=== PATIENT | male | born 1950 | race Caucasian/White ===

== ENCOUNTER → 2016-06-08 | Day surgery (SDC) | payer BC ==
[2016-06-06 13:09] VITALS: Ht 185.4 cm; Wt 88.2 kg
[~2016-06-08] VITALS: Ht 185.4 cm; Wt 88.2 kg
[~2016-06-08] MED LIST: ATEN-173 PO; HYDC25 PO; LEVE750T PO; LIDOCAINE HCL 2% 2 ML VIAL (20MG/ML) ONE; OXYC-164 PO; PROPOFOL IV EMULSION 10 MG/ML 20 ML VIAL IV ONE; SODIUM CHLORIDE 0.9% 500ML 500 ML IV ONE; SYMIN160 INH
--- NOTE | 2016-06-08 12:04 | Endo History and Physical ---
History & Physical Date of Service: Jun 08, 2016. Chief Complaint: Abnomal CT Referring Physician: Mala History of Present Illness sigmoid thickening on recent CT Past Surgical History Hx Cardiac Surgery: No Hx Internal Defibrillator: No Hx Pacemaker: No Hx Abdominal Surgery: Yes ([place]) Hx of Implantable Prosthesis: No Hx Post-Op Nausea and Vomiting: No Hx Cancer Surgery: Yes (SKIN EXCISION LEFT FOREARM) Hx Thoracic Surgery: No Hx Orthopedic: Yes (RT GENNY, LUMBAR FUSION, LEFT LOWER LEG SX ([place])) Hx Urinary Tract Surgery: No Family History None Social History Smoking Status: Former Smoker Hx Substance Use: No Hx Alcohol Use: Yes (RECENTLY STOPPED ON SATURDAY (12 BEERS WEEKLY BEFORE)) Allergies Coded Allergies: Losartan (Verified Allergy, Unknown, DIZZINESS, 06/06/16) Penicillins (Verified Allergy, Unknown, SWEATING, 06/06/16) Tramadol (Verified Allergy, Unknown, UNKNOWN, 06/06/16) Current Medications Reported Home Medications Medications Dose Route/Sig Max Daily Dose Days Date Category Oxycodone Hcl 10 Mg Tab 1 Tab PO TID 30 06/06/16 Reported Symbicort 160/4.5 Inhaler (Budesonide/Formoterol Fumarate) 120 Puffs/ Aero 2 Puffs INH BID 30 06/06/16 Reported Keppra (Levetiracetam) 750 Mg Tab 750 Mg PO BID 06/06/16 Reported Hctz * (Hydrochlorothiazide) 12.5 Mg Cap 12.5 Mg PO QAM 09/15/09 Reported Tenormin (Atenolol) 25 Mg Tab 25 Mg PO QAM 01/07/08 Reported Vital Signs Weight (Kilograms): 88.18 Height (Feet): 6 Height (Inches): 1 Date Time Temp Pulse Resp B/P Pulse Ox O2 Delivery O2 Flow Rate FiO2 06/08/16 11:29 36.5 55 18 132/68 98 Room Air Physical Exam General Appearance: WD/WN, no apparent distress Assessment and Plan colonoscopy today
--- NOTE | 2016-06-08 12:25 | Discharge Instructions ---
Endoscopy Patient Instructions Date / Procedure(s) Performed Jun 08, 2016. Colonoscopy Allergy Information Coded Allergies: Losartan (Verified Allergy, Unknown, DIZZINESS, 06/06/16) Penicillins (Verified Allergy, Unknown, SWEATING, 06/06/16) Tramadol (Verified Allergy, Unknown, UNKNOWN, 06/06/16) Discharge Date / Findings Jun 08, 2016. polyp, diverticulosis, internal hemorrhoids Medication Instructions Restart Stopped Medication(s): OK to resume all home medications as above Provider Instructions Activity Restrictions - No exercising or heavy lifting for 24 hours. - Do not drink alcohol the day of the procedure. - Do not drive a car or operate machinery until the day after the procedure. - Do not make any important decisions or sign important papers in 24 hours after the procedure. Following Day: - Return to full activity which may include returning to work/school. Diet Start your diet with liquids and light foods (jello, soup, juice, toast). Then eat your usual diet if not nauseated. Treatment For Common After Affects For mild abdominal pain, bloating, or excessive gas: - Rest - Eat lightly - Lie on right side Follow-Up Information Follow-up with Mala as scheduled Anesthesia Information What You Should Know You have had a procedure that required some medicine to reduce anxiety and discomfort. This treatment is called moderate sedation. After receiving the treatment, you may be sleepy, but you will be able to breathe on your own. The effects of the treatment may last for several hours. Follow these instructions along with Activity/Diet recommendations noted above: * Do NOT do anything where dizziness or clumsiness would be dangerous. * Rest quietly at home today, then you can be up and about tomorrow. * Have a responsible person stay with you the rest of today. * You may have had an I.V. today. If so, you may take the dressing off later today. Recommendations Call your doctor if: * Trouble breathing * Continuous vomiting for more than 24 hours * Temperature above 101 degrees * Severe abdominal pain or bloating * Pain not relieved by pain medicine ordered * There is increased drainage or redness from any incision * A large amount of rectal bleeding greater than 2-3 tablespoons. (If you had a polyp/s removed or have hemorrhoids, a small amount of blood - from the rectum is to be expected.) * You have any unanswered questions or concerns. IN THE EVENT OF A SERIOUS EMERGENCY, GO TO THE NEAREST EMERGENCY ROOM Your discharge instructions were prepared by provider Jessica Sanchez. Patient Instructions Signature Page Melquiades Lima Patient (or Guardian) Signature/Date: I have read and understand the instructions given to me by my caregivers. Caregiver/RN/Doctor Signature/Date: The above-named patient and/or guardian has received patient instructions on this date. + Original Patient Signature Page (only) stays with chart. Please make copy for patient.
--- NOTE | 2016-06-08 12:28 | GI REPORT ---
Procedure Date: 06/08/2016 12:03 PM Procedure: Colonoscopy Indications: Screening for colorectal malignant neoplasm, Incidental - Abnormal CT of the GI tract (sigmoid thickening), occasional rectal bleeding Medicines: See the Anesthesia note for documentation of the administered medications Complications: No immediate complications. Estimated blood loss: Minimal. Estimated Blood Loss: Estimated blood loss was minimal. Procedure: Pre-Anesthesia Assessment: - Prior to the procedure, a History and Physical was performed, and patient medications, allergies and sensitivities were reviewed. The patient's tolerance of previous anesthesia was reviewed. - The risks and benefits of the procedure and the sedation options and risks were discussed with the patient. All questions were answered and informed consent was obtained. - Patient identification and proposed procedure were verified prior to the procedure by the physician and the nurse. The procedure was verified in the pre-procedure area in the procedure room. - Mental Status Examination: alert and oriented. Airway Examination: normal oropharyngeal airway and neck mobility. Respiratory Examination: clear to auscultation. CV Examination: normal. Abdominal Examination: bowel sounds present, abdomen soft and non-tender, no masses or organomegaly noted. - ASA Grade Assessment: III - A patient with severe systemic disease. After I obtained informed consent, the scope was passed under direct vision. Throughout the procedure, the patient's blood pressure, pulse, and oxygen saturations were monitored continuously. The On-site loaner was introduced through the anus and advanced to the terminal ileum. The colonoscopy was performed without difficulty. The patient tolerated the procedure well. The quality of the bowel preparation was good. Findings: The perianal and digital rectal examinations were normal. Pertinent negatives include normal sphincter tone and no palpable rectal lesions. The terminal ileum appeared normal. A 6 mm polyp was found in the cecum. The polyp was sessile. The polyp was removed with a cold snare. Resection and retrieval were complete. Verification of patient identification for the specimen was done by the physician and nurse using the patient's name and date. Estimated blood loss was minimal. Multiple small and large-mouthed diverticula were found in the sigmoid colon. Internal hemorrhoids were found during retroflexion. The hemorrhoids were medium-sized and Grade I (internal hemorrhoids that do not prolapse). Impression: - The examined portion of the ileum was normal. - One 6 mm polyp in the cecum, removed with a cold snare. Resected and retrieved. - Diverticulosis in the sigmoid colon. - Internal hemorrhoids. Recommendation: - Await pathology results. - Repeat colonoscopy for surveillance based on pathology results. - Return to referring physician as previously scheduled. - Discharge patient to home. Jessica Sanchez D.O. Jessica Sanchez, 06/08/2016 12:27:27 PM This report has been signed electronically. Note Initiated On: 06/08/2016 12:03 PM I attest to the content of the Intraoperative Record and orders documented therein, exceptions below
--- NOTE | 2016-06-08 12:58 | Anesthesiology Progress Note ---
Anesthesia Post Op Note Date & Time Jun 08, 2016 at 12:58 Vital Signs Pain Intensity: 0 Vital Signs Past 12 Hours Date Time Temp Pulse Resp B/P Pulse Ox O2 Delivery O2 Flow Rate FiO2 06/08/16 12:50 49 18 119/55 98 Room Air 06/08/16 12:35 50 18 112/54 98 Room Air 06/08/16 11:29 36.5 55 18 132/68 98 Room Air Notes Mental Status: alert / awake / arousable, participated in evaluation Pt Amnestic to Procedure: Yes Nausea / Vomiting: adequately controlled Pain: adequately controlled Airway Patency, RR, SpO2: stable & adequate BP & HR: stable & adequate Hydration State: stable & adequate Anesthetic Complications: no major complications apparent Pt doing well.
[2016-06-08 13:06] VITALS: BP 131/67; PULSE 50; O2SAT 99
== END | disposition home or self-care (01) ==
LOC: C.GI 11:10
PROVIDERS: ATTEND Internal Medicine
DX: Z12.11 Encounter for screening for malignant neoplasm of colon (principal); D12.0 Benign neoplasm of cecum; K57.50 Diverticulosis of both small and large intestine without perforation or abscess without bleeding; K64.8 Other hemorrhoids; Z98.1 Arthrodesis status; Z98.890 Other specified postprocedural states; Z87.891 Personal history of nicotine dependence; Z88.0 Allergy status to penicillin; Z88.8 Allergy status to other drugs, medicaments and biological substances

== ENCOUNTER 2020-06-01 12:12 | Observation (INO) ==
[2020-06-01] MEDS ORDERED: ASPIRIN CHEW 324 MG PO STA (13:44)
[2020-06-01] MEDS: NITROGLYCERIN SL 0.4 MG/TAB TAB SL PRN ×2 (13:53→14:02)
[2020-06-01 13:59] LABS: Basophils # (auto) 0.01 K/uL (0-0.2); Basophils % (auto) 0.1 %; Eosinophils # (auto) 0.32 K/uL (0-0.5); Eosinophils % (auto) 3.4 %; Hematocrit (blood only) 42.2 % (42-52); Hemoglobin 13.9 g/dL (14.0-18.0); Immature Granulocytes # (auto) 0.02 K/uL (0.00-0.02); Immature Granulocytes % (auto) 0.2 %; Lymphocytes # (auto) 1.85 K/uL (1.2-3.4); Lymphocytes % (auto) 19.8 %; Mean Corpuscular Hgb Conc 32.9 g/dL (32-36); Mean Corpuscular Volume 88.1 fL (80-100); Mean Platelet Volume 9.4 fL (7.4-10.4); Monocytes # (auto) 0.85 K/uL (0.11-0.59); Monocytes % (auto) 9.1 %; Neutrophils # (auto) 6.28 K/uL (1.4-6.5); Neutrophils % (auto) 67.4 %; Platelet Count 260 K/uL (130-400); RDW Coefficient of Variation 13.8 % (11.5-14.5); RDW Standard Deviation 44.9 fL (36.4-46.3); Red Blood Count 4.79 M/uL (4.7-6.1); White Blood Count 9.33 K/uL (4.8-10.8)
[2020-06-01 14:11] LABS: Alanine Aminotransferase 20 U/L (12-78); Albumin Level 3.7 gm/dl (3.4-5.0); Aspartate Aminotransferase 13 U/L (15-37); BUN Creatinine Ratio 12.2 (10-20); Blood Urea Nitrogen 11 mg/dl (7-18); Calcium 9.3 mg/dl (8.5-10.1); Carbon Dioxide 29 mmol/L (21-32); Chloride 107 mmol/L (98-107); Creatinine Clr Calc Pharmacy 90.5 ml/min; Est GFR (African American) 100.9; Glucose 96 mg/dl (70-99); Lipase 110 U/L (73-393); Potassium 4.1 mmol/L (3.5-5.1); Sodium 140 mmol/L (136-145)
--- NOTE | 2020-06-01 14:11 | XRay Report ---
XR chest 1V portable CLINICAL HISTORY: Atypical chest pain COMPARISON STUDY: Headache and 18 FINDINGS: The heart is borderline enlarged. There is a left subclavian pacer/defibrillator. There is no failure. There is no focal pulmonary consolidation. There are no pleural effusions.[ IMPRESSION: No active disease in the chest. ACT 112: Negative or not required by law. Electronically signed by: Ambrose Sam M.D. 06/01/2020 2:10 PM
[2020-06-01] MEDS ORDERED: fentaNYL citrate 100 MCG/2 ML VIAL IV STA (14:13)
[2020-06-01 14:16] LABS: Albumin Globulin Ratio 0.8 (0.9-2); Alkaline Phosphatase 76 U/L (45-117); Bilirubin,Total 0.7 mg/dl (0.2-1); Globulin 4.4 gm/dl (2.5-4.0); Total Protein 8.1 gm/dl (6.4-8.2); Troponin I < 0.015 ng/ml (0-0.045)
[2020-06-01 14:58] LABS: Appearance Urine Clear (Clear); Bilirubin Urine Negative (Negative); Blood Urine Negative (Negative); Color Urine Yellow; Glucose Urine UA Negative (Negative); Ketones Urine Trace (Negative); Leukocyte Esterase Urine Negative (Negative); Nitrite Urine Negative (Negative); Protein Urine Negative (Negative); Specific Gravity Urine 1.015 (1.000-1.030); Urobilinogen Urine Negative (Negative)
[2020-06-01 15:31] LABS: Amphetamines+Metham, Urine Neg (Neg); Barbiturates, Urine Neg (Neg); Benzodiazepine, Urine Neg (Neg); Cocaine, Urine Neg (Neg); MDMA (Ecstacy), Urine Neg (Neg); Methadone, Urine Neg (Neg); Opiate, Urine Neg (Neg); Phencyclidine, Urine Neg (Neg)
--- NOTE | 2020-06-01 16:11 | Electrocardiogram Report ---
Test Reason : Blood Pressure : / mmHG Vent. Rate : 079 BPM Atrial Rate : 079 BPM P-R Int : 176 ms QRS Dur : 170 ms QT Int : 430 ms P-R-T Axes : 052 -74 056 degrees QTc Int : 493 ms AV dual-paced rhythm Abnormal ECG When compared with ECG of 25-DEC-2017 13:46, Vent. rate has increased BY 18 BPM Confirmed by Galdino Romero ([id number]) on 06/01/2020 4:11:15 PM Referred By: Roel Law Confirmed By:Erich Romero
[2020-06-01] MEDS ORDERED: ONDANSETRON INJ 2 MG/ML 2 ML VIAL IV STA (16:59)
[2020-06-01] MEDS ORDERED: MoRPHine SULFATE 4 MG/ML 1 ML CARP\\VIAL IV STA (16:59)
[2020-06-01] MEDS ORDERED: FAMOTIDINE 20MG/5ML IV PUSH IV STA (17:01)
--- NOTE | 2020-06-01 17:14 | Cardiology Consultation ---
Date of Consultation June 01, 2020 Assessment & Plan (1) Chest pain: (2) SOB (shortness of breath): (3) Chronic pain: (4) Chronic systolic congestive heart failure, NYHA class 3: (5) LBBB (left bundle branch block): (6) NICM (nonischemic cardiomyopathy): Initial ischemic work-up in the emergency department was unremarkable without EKG changes and troponin negative x2. I am not quite sure what to make of his presenting symptoms at this point. I was able to reproduce some chest discomfort with palpation but he states that this was different than his presenting chest pain. At this point the differential diagnosis would include: Ischemia, pericarditis, pulmonary embolism, pleurisy and musculoskeletal. The ER physician has ordered a CTA and I agree with this. We will admit to telemetry and trend troponins overnight. We will obtain a resting 2D echocardiogram and Lexiscan nuclear stress test in the a.m. to complete cardiac work-up of his discomfort. Would continue his outpatient medical regimen including his current doses of aspirin, Entresto, spironolactone, carvedilol and atorvastatin. No indication for anticoagulation at this time. History of Present Illness Reason for Consultation: chest pain Requesting Physician: Dr. Renee Attending Physician: Papa History of Present Illness Mr. Lima is a very pleasant 69-year-old gentleman with with myself as an outpatient for his history of nonischemic cardiomyopathy. Mr. Lima is a very pleasant 69-year-old gentleman he presented to the emergency department this morning at the advice of our office after he called in complaining of chest discomfort and shortness of breath. He states he was in his normal state of health up until yesterday afternoon when he started noticing some difficulty breathing. He states he felt more short of breath than normal and he developed some chest discomfort. He described it as in the center of his chest a sharp stabbing/dull achy sensation that was worse with with deep inhalation. He attempted to go to bed that night but was unable to lie flat and set up with his oxygen on all night. His chest discomfort then progressed to radiating up to his neck and to his right shoulder. He called our clinic for advice and he was directed to the emergency department. He notes no improvement with the chest discomfort in the emergency department. He notes that this is similar to his most recent presentation to [facility] for chest discomfort. Past medical history: 1.Nonischemic cardiomyopathy, EF 30%, status post biventricular ICD placement. 2.Chronic left bundle branch block. 3.History of tobacco abuse. 4.Lung nodules. 5.History of Agent [place] exposure during [place] war. 6.Chronic pain. 7.Hypertension. 8.seizures. 9. History of musculoskeletal chest pain Allergies Allergy/AdvReac Type Severity Reaction Status Date / Time losartan Allergy Unknown DIZZINESS Verified 06/01/20 12:53 Penicillins Allergy Unknown SWEATING Verified 06/01/20 12:53 tramadol Allergy Unknown UNKNOWN Verified 06/01/20 12:53 Home Medications Medication Instructions Recorded Confirmed Type acetaminophen [Tylenol] 650 mg PO Q6H PRN 12/20/17 06/01/20 History albuterol sulfate [ProAir HFA] 2 puff INHALATION Q4H PRN 12/20/17 06/01/20 History budesonide-formoterol 2 puff INHALATION BID 12/20/17 06/01/20 History carvedilol 6.25 mg PO BID 12/20/17 06/01/20 History lisinopril 20 mg PO QAM 12/20/17 06/01/20 History oxycodone 10 mg PO TID 12/20/17 06/01/20 History spironolactone 12.5 mg PO DAILY 12/25/17 06/01/20 History aspirin [Aspir-81] 81 mg PO DAILY 06/01/20 06/01/20 History sacubitril-valsartan [Entresto] 1 tab PO BID 06/01/20 06/01/20 History Patient History Medical History Cancer LEFT FOREARM-NOT MELANOMA Chronic obstructive pulmonary disease Admitted to [facility] 09/01/17 for hypoxemia/ARDS requiring intubation. Congestive heart failure Depression Flash pulmonary edema 08/2017 to ED with SOB, found to have flash pulm edema--transferred from [facility] to [facility], intubated. During this hospitalization found to have cardiomyopathy. Fusion of spine LUMBAR GERD (gastroesophageal reflux disease) HX Hypertension LBBB (left bundle branch block) Lung nodules Nonischemic cardiomyopathy EF 25-29% On home oxygen therapy OXYGEN 2 L/MIN NC HS ONLY Osteoarthritis Seizure 05/2016-DX'D BRAIN TUMOR (EPIDERMOID CYST) -[facility]-NO SEIZURES AFTER SURG DONE 06/2016. STARTED WEANING OFF KEPPRA 09/19/17 Surgical History History of cardiac cath 08/2017 NO STENTS NEEDED History of cholecystectomy History of open reduction and internal fixation (ORIF) procedure LLE-RODDING History of total hip arthroplasty RIGHT Hx of brain surgery 05/2016 EPIDERMAL CYST Hx of removal of cyst R THIGH /BACK-BENIGN Family History Sister Family history of diabetes mellitus Father Family history of diabetes mellitus Brother Family history of diabetes mellitus Social History Smoking Status: Current every day smoker Cigarettes Per Day: SMOKES 1 PPD X 52 YRS; Second Hand Exposure: No; Hx Alcohol Use: Yes Alcohol type: beer Hx Substance Use: No Preferred Language: Citizen Of [place] Communication Ability: Effective Automobile Service Advisor Required: No Beliefs That Will Affect Care: None Current Living Situation: Spouse Feels Safe at Home: Yes Assistive Devices: None Review of Systems Review of Systems: All systems reviewed & are unremarkable except as noted in HPI & below Physical Exam Physical Exam: General: Awake, alert and oriented x 3. No acute distress. HEENT: Normocephalic, atraumatic. Pupils equal, round and reactive to light and accommodation. Extraocular muscles are intact. Anicteric sclera. Moist mucous membranes. Neck: No JVD. No bruit. Cardiovascular: Regular. Positive S-4. Normal S-1 and S-2. No S-3. No murmurs or rubs. Pulmonary: Clear to auscultation B/L. No rales, rhonchi or wheezing Abdomen: Bowel sounds x 4, soft. No rebound, guarding or tenderness. No organomegaly. Extremities: No clubbing, cyanosis or edema. +2 pedal pulses bilaterally. Skin: Warm and dry. Results & Data ([facility]) Vital Signs (Past 12 Hours) Vital Signs Temp Pulse Pulse Resp BP BP Pulse Ox 06/01/20 16:00 62 19 134/63 92 06/01/20 15:50 61 18 149/71 H 92 06/01/20 15:40 66 17 120/63 94 03/24/21 15:31 60 16 95 24/21 15:30 60 18 139/73 95 24/21 15:20 62 16 126/66 95 24/21 15:10 60 17 142/65 H 93 06/01/20 15:01 61 16 96 06/01/ 15:00 61 15 124/67 95 24/21 14:51 60 14 95 06/01/ 14:50 61 19 134/68 96 06/01/ 14:40 61 15 124/69 96 06/01/20 14:31 65 22 96 06/01/20 14:30 62 17 137/71 97 06/01/ 14:22 62 18 128/74 96 06/01/20 14:10 69 18 103/61 93 06/01/20 14:02 61 18 131/66 96 06/01/20 14:00 62 13 131/66 95 06/01/ 13:52 64 18 147/72 H 96 06/01/20 13:45 96 06/01/20 13:30 60 15 95 06/01/20 13:00 60 15 97 06/01/21 12:43 62 17 147/72 H 93 24/21 12:40 69 20 /24/21 12:16 36.7 C 18 130/77 93
[2020-06-01] MEDS ORDERED: OPTIRAY 320 125ml IV ONE (17:42)
--- NOTE | 2020-06-01 17:52 | History & Physical Report ---
Date of Service June 01, 2020 Assessment & Plan (1) Chest pain: (2) NICM (nonischemic cardiomyopathy): Pt is 69 y/o M with PMH non-ischemic cardiomyopathy with EF 30% s/p ICD thought secondary to agent orange exposure, chronic LBBB, HTN, COPD, chronic hypoxic respiratory failure on 2L oxygen HS, seizure thought secondary to brain tumor s/p surgery, chronic pain presented to ER with c/o CP x 1 day In ER vitals stable. Negative troponin x 2. Paced rhythm on EKG. Received aspirin 324mg, Nitro SL x 2, morphine, pepcid, zofran, and fentanyl and felt relief after fentanyl CTA chest:No evidence of thoracic aortic aneurysm or dissection. No evidence of acute pulmonary embolism. Small pericardial effusion CHEST PAIN R/O ACS. Risk factors: HTN, hyperlipidemia, tobacco use. DDX: musculoskeletal etiology, pericarditis. Monitor Vitals Repeat EKG in am Will trend troponin Echo lipid panel in am, continue statin Continue aspirin, carvedilol, Entresto, spironolactone Morphine prn pain NPO midnight for possible stress test tomorrow Cardiology consult COPD CHRONIC HYPOXIC RESPIRATORY FAILURE On oxygen 2L NC HS No signs of acute exacerbation Continue home inhalers HTN BP stable Continue carvedilol, Entresto CHRONIC BACK PAIN Continue home oxycodone CHRONIC LBBB TOBACCO USE smoking cessation encouraged denies nicotine patch at this time DVT Prophylaxis -Heparin SQ Full Code as per discussion with pt Follows with Dr Medeiros for routine care Pt was seen and care coordinated with Dr Herring. See addendum History of Present Illness Chief Complaint: CP Primary Care Provider: Andry Medeiros MD Pt is 69 y/o M with PMH non-ischemic cardiomyopathy with EF 30% s/p ICD thought secondary to agent orange exposure, chronic LBBB, HTN, COPD, chronic hypoxic respiratory failure on 2L oxygen HS, seizure thought secondary to brain tumor s/p surgery, chronic pain presented to ER with c/o CP x 1 day. Reports yesterday afternoon started with SOB, anterior chest pain. Reports worsening CP during the night rated 8/10 on pain scale and reports radiation to neck and right shoulder. Pt states had to sit upright last night which seemed to make CP and SOB better. In ER notices lying on left side makes him feel better. He states past several days lying on right side caused some right shoulder and neck pain. Denies injury/trauma. Denies any activity or exertion. States has been sitting at home. Has chronic mild intermittent cough productive of clear sputum. Denies any increased cough or increased sputum production. Denies wheezing. Reports in 03/2020 had CP and was seen at [facility] and had acute [place] ruled out. Denies fever/chills, diaphoresis, N/V/D/C, SIMON, syncope, vision changes, neck pain, palpitations, hemoptysis, sore throat, choking, otalgia, rhinorrhea, abdominal pain, paresthesias, weakness, extremity weakness, extremity edema, rashes, urinary symptoms. Allergies Allergy/AdvReac Type Severity Reaction Status Date / Time losartan Allergy Unknown DIZZINESS Verified 06/01/20 12:53 Penicillins Allergy Unknown SWEATING Verified 06/01/20 12:53 tramadol Allergy Unknown UNKNOWN Verified 06/01/20 12:53 Home Medications Medication Instructions Recorded Confirmed Type acetaminophen [Tylenol] 650 mg PO Q6H PRN 12/20/17 06/01/20 History albuterol sulfate [ProAir HFA] 2 puff INHALATION Q4H PRN 12/20/17 06/01/20 History budesonide-formoterol 2 puff INHALATION BID 12/20/17 06/01/20 History oxycodone 10 mg PO TID PRN 12/20/17 06/01/20 History spironolactone 12.5 mg PO DAILY 12/25/17 06/01/20 History aspirin [Aspir-81] 81 mg PO DAILY 06/01/20 06/01/20 History atorvastatin 80 mg PO DAILY 06/01/20 06/01/20 History carvedilol 25 mg PO BID 06/01/20 06/01/20 History montelukast 10 mg PO HS 06/01/20 06/01/20 History sacubitril-valsartan [Entresto] 1 tab PO BID 06/01/20 06/01/20 History Past Med/Surg History Medical History (Updated 06/01/20 @ 17:58 by Kylee Sanchez PA-C) 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 Congestive heart failure Depression Flash pulmonary edema 08/2017 to ED with SOB, found to have flash pulm edema--transferred from [facility] [place] [facility]. During this hospitalization found to have cardiomyopathy. Fusion of spine LUMBAR GERD (gastroesophageal reflux disease) HX Hypertension LBBB (left bundle branch block) Lung nodules Nonischemic cardiomyopathy EF 25-29% On home oxygen therapy OXYGEN 2 L/MIN NC HS ONLY Osteoarthritis Seizure 05/2016-DX'D BRAIN TUMOR (EPIDERMOID CYST) [place] SEIZURES AFTER SURG DONE 06/2016. STARTED WEANING OFF KEPPRA 09/19/17 Surgical History History of cardiac cath 08/2017 NO STENTS NEEDED History of cholecystectomy History of open reduction and internal fixation (ORIF) procedure LLE-RODDING History of total hip arthroplasty RIGHT Hx of brain surgery 05/2016 EPIDERMAL CYST Hx of removal of cyst R THIGH /BACK-BENIGN Family History Sister Family history of diabetes mellitus Father Family history of diabetes mellitus Brother Family history of diabetes mellitus Social History Smoking Status: Current every day smoker Cigarettes Per Day: SMOKES 1 PPD X 52 YRS; Second Hand Exposure: No; Hx Alcohol Use: Yes Alcohol type: beer Hx Substance Use: No Preferred Language: Tongan Communication Ability: Effective Decorator Inspector Required: No Beliefs That Will Affect Care: None Current Living Situation: Spouse Feels Safe at Home: Yes Assistive Devices: None Review of Systems Review of Systems: All systems reviewed & are unremarkable except as noted in HPI & below Physical Exam Physical Exam: General: no distress, WDWN Head: normocephalic, atraumatic Eyes: PERRL, EOM's intact, conjunctiva non-injected, anicteric ENT: normal inspection external ears, nose, mucous membranes moist Neck: supple, trachea midline Lungs: clear, no respiratory distress, no wheezing/rhonchi/rales CV: RRR, no murmur, no pretibial edema, currently chest wall non-tender to palpation (pt medicated prior to my eval) Abd: normal BS, soft, non-tender Ext: no cyanosis, no calf tenderness; right shoulder non-tender to palpation and with ROM Neuro: A&O x 3, no focal deficits noted, normal affect Skin: warm, dry Results & Data Results & Data ([facility]) Vital Signs (Past 12 Hours) Vital Signs Temp Pulse Pulse Resp BP BP Pulse Ox 06/01/20 17:31 63 14 96 06/01/20 17:30 67 15 104/61 94 06/01/20 17:20 66 17 132/65 95 06/01/20 17:11 71 22 95 06/01/20 17:10 67 15 150/80 H 94 06/01/20 17:01 64 17 164/79 H 96 06/01/20 17:00 70 13 96 06/01/20 16:50 66 15 129/74 94 06/01/20 16:40 63 16 144/69 H 95 06/01/20 16:31 63 19 92 06/01/20 16:30 63 14 126/66 92 06/01/20 16:20 62 21 150/73 H 95 06/01/20 16:10 62 19 131/72 93 06/01/20 16:01 61 18 92 06/01/20 16:00 62 19 134/63 92 06/01/20 15:50 61 18 149/71 H 92 06/01/20 15:40 66 17 120/63 94 06/01/20 15:31 60 16 95 06/01/20 15:30 60 18 139/73 95 06/01/20 15:20 62 16 126/66 95 06/01/20 15:10 60 17 142/65 H 93 06/01/20 15:01 61 16 96 06/01/20 15:00 61 15 124/67 95 06/01/20 14:51 60 14 95 06/01/20 14:50 61 19 134/68 96 06/01/20 14:40 61 15 124/69 96 06/01/20 14:31 65 22 96 06/01/20 14:30 62 17 137/71 97 06/01/20 14:22 62 18 128/74 96 06/01/20 14:10 69 18 103/61 93 06/01/20 14:02 61 18 131/66 96 06/01/20 14:00 62 13 131/66 95 06/01/20 13:52 64 18 147/72 H 96 06/01/20 13:45 96 06/01/20 13:30 60 15 95 06/01/20 13:00 60 15 97 06/01/20 12:43 62 17 147/72 H 93 06/01/20 12:40 69 20 06/01/20 12:16 36.7 C 18 130/77 93 Laboratory Results Short CBC 06/01/20 Range/Units 12:44 WBC 9.33 (4.8-10.8) K/uL Hgb 13.9 L (14.0-18.0) g/dL Hct 42.2 (42-52) % Plt Count 260 (130-400) K/uL BMP 06/01/20 12:44 Sodium 140 Potassium 4.1 Chloride 107 Carbon Dioxide 29 BUN 11 Creatinine 0.88 Glucose 96 Calcium 9.3 Cardiac Enzymes 06/01/20 06/01/20 Range/Units 12:44 15:27 Troponin I < 0.015 < 0.015 (0-0.045) ng/ml Liver Function 06/01/20 Range/Units 12:44 Total Bilirubin 0.7 (0.2-1) mg/dl AST 13 L (15-37) U/L ALT 20 (12-78) U/L Alkaline Phosphatase 76 (45-117) U/L Albumin 3.7 (3.4-5.0) gm/dl Urine 06/01/20 Range/Units 14:15 Urine Color Yellow Urine Appearance Clear (Clear) Urine pH 7.0 (4.5-7.5) Ur Specific [place] 1.015 (1.000-1.030) Urine Protein Negative (Negative) Urine Glucose (UA) Negative (Negative) Diagnostic Findings CXR: IMPRESSION: No active disease in the chest. CTA CHEST: IMPRESSION: 1. No evidence of thoracic aortic aneurysm or dissection 2. Moderately extensive atheromatous changes within the descending thoracic aorta with multiple ulcerated plaques 3. No evidence of acute pulmonary embolism 4. Small pericardial effusion 5. Scattered pulmonary micronodules, statistically postinflammatory 6. 4 mm left lower lobe perifissural nodule and 3 mm subpleural left lower lobe pulmonary nodule. No follow-up is recommended in an average risk patient ECG Findings: + paced rhythm Code Status & VTE Plan VTE Prophylaxis Plan VTE Prophylaxis will be ordered: Yes Supervising Physician Co-Signing Physician Notes Patient is 69-year-old male with past medical history of nonischemic cardiomyopathy who is accompanied by by his today presented to the ED after sudden episode of chest pain along with shortness of breath. Patient reports his chest pain is substernal in nature radiates bilateral to the chest and to the right arm. Also reports that he has been feeling short of breath for the past few days. Denies any cough, fever or sore throat. Has any dizziness or any palpitations. Reports his pain gets worse with deep breathing. Denies any recent travel. Does report orthopnea and paroxysmal nocturnal dyspnea. His baseline weight is around 178 and today's roughly 179. Cardiac enzymes have been negative. Cardiology has been consulted. Will obtain transthoracic echo and trend cardiac enzymes. As needed morphine for pain control. I performed a history and physical examination of the patient on 06/01/20, including specifically H&P. I have discussed the patient's management with the advanced practitioner. Please refer to the Kylee Sanchez note for the documented findings and plan of care.
--- NOTE | 2020-06-01 18:04 | Emergency Department Note ---
Impression & Plan SOB (shortness of breath), Substernal chest pain ED Provider Note NAME: JOSE JUAN BRAY AGE: 69 SEX: M ARRIVES VIA: Walk-In INFORMANT: Patient, ED PROVIDER(S): Tara Renee MD CHIEF COMPLAINT: Chest pain, shortness of breath PLAN: Disposition: Admission Condition: Good Referral: Hospitalist MEDICAL DECISION MAKING: This patient was evaluated and appeared to be in no significant distress. IV access was obtained and laboratory work was drawn. Patient was placed on the group activities aide and noted to be in a paced rhythm. EKG reveals no acute ischemic changes however patient is paced. Patient was given 3 baby aspirin as he had already taken 1 previous to the visit. He was given sublingual nitroglycerin without any change in the discomfort. Patient was then ordered IV fentanyl which he apparently never received and then was given IV morphine and Zofran. Patient's troponin is negative x2. Patient's pharmacy technician instructor, Dr. Law arrived in the emergency department and recommended hospitalization for further evaluation given the patient's multiple medical problems. A CT scan of the chest was performed as the patient began to complain of some back discomfort. There is no evidence of dissection however there is significant atherosclerotic change. The [facility] hospitalist was consulted for further management. Patient and are aware of the plan and agree Triage Nursing notes reviewed. Prior medical records reviewed Vital Signs: reviewed and remarkable for no significant abnormalities Differential diagnosis: Cardiac ischemia, aortic dissection, pulmonary embolism, pneumothorax, pneum onia, pericarditis, myocarditis, esophageal rupture, GERD, cholecystitis, pancreatitis, musculoskeletal, as well as other pathologies. ER treatment provided: P.o. aspirin Sublingual nitroglycerin IV morphine IV Zofran Diagnostics interpreted by me: ECG: Atrially sensed and ventricularly paced with frequent AV dual paced complexes. Prolonged QTC at 473. No acute ST segment change. Cardiac Monitoring: An order for cardiac monitoring was placed and the patient is noted to be in a paced rhythm at 62 bpm Laboratory studies: See below Imaging studies: XR chest 1V portable CLINICAL HISTORY: Atypical chest pain COMPARISON STUDY: Headache and 18 FINDINGS: The heart is borderline enlarged. There is a left subclavian pacer/defibrillator. There is no failure. There is no focal pulmonary consolidation. There are no pleural effusions.[ IMPRESSION: No active disease in the chest. ACT 112: Negative or not required by law. Electronically signed by: Ambrose Sam M.D. 06/01/2020 2:10 PM Dictated: 06/01/201408Transcribed: 06/01/201408 CT ANGIOGRAPHY OF THE CHEST WITHOUT AND WITH IV CONTRAST CLINICAL HISTORY: Chest pain radiating to the back. Possible acute aortic dissection. COMPARISON STUDY: Chest x-ray dated 06/01/2020 TECHNIQUE: Unenhanced images were obtained through the thorax. Following the IV administration of 119 mL of Optiray-[id number], CT angiography of the thorax was performed from the thoracic inlet to the lung bases. Images were acquired Images are reviewed in the axial, sagittal, and coronal planes. IV contrast was administered without complication. A dose lowering technique was utilized adhering to the principles of ALARA. CT DOSE: 609.84 mGy.cm FINDINGS: Thyroid: There is a multinodular thyroid gland with nodules measuring up to 11 mm in diameter Thoracic aorta: Noncontrast images reveal no evidence of acute thoracic aortic hematoma. There is no evidence of thoracic aortic aneurysm. There is no evidence of thoracic aortic dissection. There are moderately advanced atheromatous changes within the descending thoracic aorta with scattered ulcerated plaques. Pulmonary vasculature: The pulmonary trunk is normal in caliber. There are no central filling defects identified to suggest pulmonary embolus. Note that this examination was not protocoled for the evaluation of pulmonary emboli. HEART: There is a small pericardial effusion. A pacer/defibrillator is present. Lungs and pleural spaces: There is no pneumothorax. There is biapical scarring. There is pulmonary emphysema. There is no lobar consolidation. There are nonspecific scattered pulmonary micronodules, statistically postinflammatory. There is a 4 mm left lower lobe perifissural nodule, and 3 mm subpleural left lower lobe pulmonary nodule. Mediastinum: There is no evidence of pathologic mediastinal lymphadenopathy. Irish: Hilar lymph nodes are the upper limits of normal in size. Axilla: There is no evidence of pathologic axillary lymphadenopathy. Upper abdomen: Partially visualized upper abdominal viscera is within normal limits. Skeletal structures: There are no lytic or blastic osseous lesions. IMPRESSION: 1. No evidence of thoracic aortic aneurysm or dissection 2. Moderately extensive atheromatous changes within the descending thoracic aorta with multiple ulcerated plaques 3. No evidence of acute pulmonary embolism 4. Small pericardial effusion 5. Scattered pulmonary micronodules, statistically postinflammatory 6. 4 mm left lower lobe perifissural nodule and 3 mm subpleural left lower lobe pulmonary nodule. No follow-up is recommended in an average risk patient ACT 112: Negative or not required by law. Electronically signed by: Ambrose Sam M.D. 06/01/2020 6:08 PM Dictated: 06/01/20 1800Transcribed: 06/01/20 1800 HPI: 69/M arrives for evaluation of chest pain and shortness of breath that has kept him up all night. Patient's states he sat up against a wall with his oxygen in place having difficulty catching her breath patient states he had substernal chest discomfort that radiated up towards the neck however he denies any radiation to the arms or the back. Patient does have a pacemaker and history of cardiomyopathy. He wears oxygen but only at night. He took his usual pain medications without any relief. He feels as though there may be fluid in his chest. He denies any exposure to Covid, fevers, change in cough or lower extremity swelling. He denies any vomiting, abdominal pain or diarrhea. ROS: See above HPI for pertinent positives & negatives. A total of 10 systems reviewed and were otherwise negative. PAST MEDICAL HISTORY:See Below PAST SURGICAL HISTORY:See Below FAMILY HISTORY:See Below SOCIAL HISTORY:See Below HOME MEDICATIONS:See Below ALLERGIES:See Below VITALS:See Below PHYSICAL EXAMINATION: Vital signs reviewed. General: Chronically ill-appearing 69 yo male, in no significant distress. HEENT: No scleral icterus, PERRLA, neck supple. Atraumatic. Cardiovascular: Regular rate and rhythm, no extra sounds. Pulmonary: Coarse breath sounds bilaterally, mild increased work of breathing. Abdomen: Soft, nontender, nondistended, positive bowel sounds. Musculoskeletal: Atraumatic, no peripheral edema. 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 Congestive heart failure Depression Flash pulmonary edema 08/2017 to ED with SOB, found to have flash pulm edema--transferred from [facility] to [facility] [place] [facility] [place]. During this hospitalization found to have cardiomyopathy. Fusion of spine LUMBAR GERD (gastroesophageal reflux disease) HX Hypertension LBBB (left bundle branch block) Lung nodules Nonischemic cardiomyopathy EF 25-29% On home oxygen therapy OXYGEN 2 L/MIN NC HS ONLY Osteoarthritis Seizure 05/2016-DX'D BRAIN TUMOR (EPIDERMOID CYST) -C-NO SEIZURES AFTER SURG DONE 06/2016. STARTED WEANING OFF KEPPRA 09/19/17 Surgical History History of cardiac cath 08/2017 NO STENTS NEEDED History of cholecystectomy History of open reduction and internal fixation (ORIF) procedure LLE-RODDING History of total hip arthroplasty RIGHT Hx of brain surgery 05/2016 EPIDERMAL CYST Hx of removal of cyst R THIGH /BACK-BENIGN Family History Sister Family history of diabetes mellitus Father Family history of diabetes mellitus Brother Family history of diabetes mellitus Social History Smoking Status: Current every day smoker Cigarettes Per Day: SMOKES 1 PPD X 52 YRS; Second Hand Exposure: No; Hx Alcohol Use: No Hx Substance Use: No Preferred Language: Greenlandic Communication Ability: Effective Adult Secondary Education Instructor Required: No Beliefs That Will Affect Care: None Current Living Situation: Spouse Feels Safe at Home: Yes Assistive Devices: None Allergies Allergies Allergy/AdvReac Type Severity Reaction Status Date / Time Penicillins Allergy Mild SWEATING Verified 06/01/20 20:37 tramadol Allergy Unknown UNKNOWN Verified 06/01/20 12:53 losartan AdvReac Mild DIZZINESS Verified 06/01/20 20:37 Home Meds Home Medications Medication Instructions Recorded Confirmed acetaminophen [Tylenol] 650 mg PO Q6H PRN 12/20/17 06/01/20 albuterol sulfate [ProAir HFA] 2 puff INHALATION Q4H PRN 12/20/17 06/01/20 budesonide-formoterol 2 puff INHALATION BID 12/20/17 06/01/20 oxycodone 10 mg PO TID PRN 12/20/17 06/01/20 spironolactone 12.5 mg PO DAILY 12/25/17 06/01/20 Entresto 1 tab PO BID 06/01/20 06/01/20 aspirin 81 mg PO DAILY 06/01/20 06/01/20 atorvastatin 80 mg PO DAILY 06/01/20 06/01/20 carvedilol 25 mg PO BID 06/01/20 06/01/20 montelukast 10 mg PO HS 06/01/20 06/01/20 Previous Rx's Medication Instructions Recorded colchicine [Colcrys] 0.6 mg PO BID #60 tab 06/02/20 ibuprofen 600 mg PO Q8 30 Days #90 tab 06/02/20 pantoprazole 40 mg PO QAM #30 tab 06/02/20 Results & Data (ED) Vital Signs Vital Signs - 24 hr 06/01/20 12:16 06/01/20 12:40 06/01/20 12:43 Temperature 36.7 C Temperature Source Temporal Artery Scan Pulse Rate 69 62 Pulse Rate [Apical] Pulse Rate from SpO2 Sensor 62 Pulse Rhythm Regular Pulse Strength Normal Respiratory Rate 18 20 17 Respiratory Effort / Characteristics Non-Labored Spontaneous Respiratory Depth Normal Respiratory Pattern Regular Blood Pressure 130/77 147/72 H Blood Pressure [Left Arm] Blood Pressure Mean 94 97 Blood Pressure Mean [Left Arm] Blood Pressure Position Sitting Pulse Oximetry 93 93 Oxygen Delivery Method Room Air Sepsis Recent Fever Within 48 Hours No Sepsis New/Unexplained Change in Mental Status N/A Sepsis Action Taken by Nursing No Action Required 06/01/20 13:00 06/01/20 13:30 06/01/20 13:45 Temperature Temperature Source Pulse Rate 60 60 Pulse Rate [Apical] Pulse Rate from SpO2 Sensor 60 60 Pulse Rhythm Pulse Strength Respiratory Rate 15 15 Respiratory Effort / Characteristics Respiratory Depth Respiratory Pattern Blood Pressure Blood Pressure [Left Arm] Blood Pressure Mean Blood Pressure Mean [Left Arm] Blood Pressure Position Pulse Oximetry 97 95 96 Oxygen Delivery Method Room Air Sepsis Recent Fever Within 48 Hours Sepsis New/Unexplained Change in Mental Status Sepsis Action Taken by Nursing 06/01/20 13:52 06/01/20 14:00 06/01/20 14:02 Temperature Temperature Source Pulse Rate 62 Pulse Rate [Apical] 64 61 Pulse Rate from SpO2 Sensor 62 Pulse Rhythm Pulse Strength Respiratory Rate 18 13 18 Respiratory Effort / Characteristics Respiratory Depth Respiratory Pattern Blood Pressure 131/66 Blood Pressure [Left Arm] 147/72 H 131/66 Blood Pressure Mean 87 Blood Pressure Mean [Left Arm] 97 87 Blood Pressure Position Pulse Oximetry 96 95 96 Oxygen Delivery Method Room Air Room Air Sepsis Recent Fever Within 48 Hours Sepsis New/Unexplained Change in Mental Status Sepsis Action Taken by Nursing 06/01/20 14:10 06/01/20 14:22 06/01/20 14:30 Temperature Temperature Source Pulse Rate 69 62 62 Pulse Rate [Apical] Pulse Rate from SpO2 Sensor 68 63 61 Pulse Rhythm Pulse Strength Respiratory Rate 18 18 17 Respiratory Effort / Characteristics Respiratory Depth Respiratory Pattern Blood Pressure 103/61 128/74 137/71 Blood Pressure [Left Arm] Blood Pressure Mean 75 92 93 Blood Pressure Mean [Left Arm] Blood Pressure Position Pulse Oximetry 93 96 97 Oxygen Delivery Method Sepsis Recent Fever Within 48 Hours Sepsis New/Unexplained Change in Mental Status Sepsis Action Taken by Nursing 06/01/20 14:31 06/01/20 14:40 06/01/20 14:50 Temperature Temperature Source Pulse Rate 65 61 61 Pulse Rate [Apical] Pulse Rate from SpO2 Sensor 62 61 61 Pulse Rhythm Pulse Strength Respiratory Rate 22 15 19 Respiratory Effort / Characteristics Respiratory Depth Respiratory Pattern Blood Pressure 124/69 134/68 Blood Pressure [Left Arm] Blood Pressure Mean 87 90 Blood Pressure Mean [Left Arm] Blood Pressure Position Pulse Oximetry 96 96 96 Oxygen Delivery Method Sepsis Recent Fever Within 48 Hours Sepsis New/Unexplained Change in Mental Status Sepsis Action Taken by Nursing 06/01/20 14:51 06/01/20 15:00 06/01/20 15:01 Temperature Temperature Source Pulse Rate 60 61 61 Pulse Rate [Apical] Pulse Rate from SpO2 Sensor 60 61 60 Pulse Rhythm Pulse Strength Respiratory Rate 14 15 16 Respiratory Effort / Characteristics Respiratory Depth Respiratory Pattern Blood Pressure 124/67 Blood Pressure [Left Arm] Blood Pressure Mean 86 Blood Pressure Mean [Left Arm] Blood Pressure Position Pulse Oximetry 95 95 96 Oxygen Delivery Method Sepsis Recent Fever Within 48 Hours Sepsis New/Unexplained Change in Mental Status Sepsis Action Taken by Nursing 06/01/20 15:10 06/01/20 15:20 06/01/20 15:30 Temperature Temperature Source Pulse Rate 60 62 60 Pulse Rate [Apical] Pulse Rate from SpO2 Sensor 60 62 60 Pulse Rhythm Pulse Strength Respiratory Rate 17 16 18 Respiratory Effort / Characteristics Respiratory Depth Respiratory Pattern Blood Pressure 142/65 H 126/66 139/73 Blood Pressure [Left Arm] Blood Pressure Mean 90 86 95 Blood Pressure Mean [Left Arm] Blood Pressure Position Pulse Oximetry 93 95 95 Oxygen Delivery Method Sepsis Recent Fever Within 48 Hours Sepsis New/Unexplained Change in Mental Status Sepsis Action Taken by Nursing 06/01/20 15:31 06/01/20 15:40 06/01/20 15:50 Temperature Temperature Source Pulse Rate 60 66 61 Pulse Rate [Apical] Pulse Rate from SpO2 Sensor 60 63 60 Pulse Rhythm Pulse Strength Respiratory Rate 16 17 18 Respiratory Effort / Characteristics Respiratory Depth Respiratory Pattern Blood Pressure 120/63 149/71 H Blood Pressure [Left Arm] Blood Pressure Mean 82 97 Blood Pressure Mean [Left Arm] Blood Pressure Position Pulse Oximetry 95 94 92 Oxygen Delivery Method Sepsis Recent Fever Within 48 Hours Sepsis New/Unexplained Change in Mental Status Sepsis Action Taken by Nursing 06/01/20 16:00 06/01/20 16:01 06/01/20 16:10 Temperature Temperature Source Pulse Rate 62 61 62 Pulse Rate [Apical] Pulse Rate from SpO2 Sensor 62 61 62 Pulse Rhythm Pulse Strength Respiratory Rate 19 18 19 Respiratory Effort / Characteristics Respiratory Depth Respiratory Pattern Blood Pressure 134/63 131/72 Blood Pressure [Left Arm] Blood Pressure Mean 86 91 Blood Pressure Mean [Left Arm] Blood Pressure Position Pulse Oximetry 92 92 93 Oxygen Delivery Method Sepsis Recent Fever Within 48 Hours Sepsis New/Unexplained Change in Mental Status Sepsis Action Taken by Nursing 06/01/20 16:20 06/01/20 16:30 06/01/20 16:31 Temperature Temperature Source Pulse Rate 62 63 63 Pulse Rate [Apical] Pulse Rate from SpO2 Sensor 62 63 63 Pulse Rhythm Pulse Strength Respiratory Rate 21 14 19 Respiratory Effort / Characteristics Respiratory Depth Respiratory Pattern Blood Pressure 150/73 H 126/66 Blood Pressure [Left Arm] Blood Pressure Mean 98 86 Blood Pressure Mean [Left Arm] Blood Pressure Position Pulse Oximetry 95 92 92 Oxygen Delivery Method Sepsis Recent Fever Within 48 Hours Sepsis New/Unexplained Change in Mental Status Sepsis Action Taken by Nursing 06/01/20 16:40 06/01/20 16:50 06/01/20 17:00 Temperature Temperature Source Pulse Rate 63 66 70 Pulse Rate [Apical] Pulse Rate from SpO2 Sensor 63 65 70 Pulse Rhythm Pulse Strength Respiratory Rate 16 15 13 Respiratory Effort / Characteristics Respiratory Depth Respiratory Pattern Blood Pressure 144/69 H 129/74 Blood Pressure [Left Arm] Blood Pressure Mean 94 92 Blood Pressure Mean [Left Arm] Blood Pressure Position Pulse Oximetry 95 94 96 Oxygen Delivery Method Sepsis Recent Fever Within 48 Hours Sepsis New/Unexplained Change in Mental Status Sepsis Action Taken by Nursing 06/01/20 17:01 06/01/20 17:10 06/01/20 17:11 Temperature Temperature Source Pulse Rate 64 67 71 Pulse Rate [Apical] Pulse Rate from SpO2 Sensor 65 66 70 Pulse Rhythm Pulse Strength Respiratory Rate 17 15 22 Respiratory Effort / Characteristics Respiratory Depth Respiratory Pattern Blood Pressure 164/79 H 150/80 H Blood Pressure [Left Arm] Blood Pressure Mean 107 103 Blood Pressure Mean [Left Arm] Blood Pressure Position Pulse Oximetry 96 94 95 Oxygen Delivery Method Sepsis Recent Fever Within 48 Hours Sepsis New/Unexplained Change in Mental Status Sepsis Action Taken by Nursing 06/01/20 17:20 06/01/20 17:30 06/01/20 17:31 Temperature Temperature Source Pulse Rate 66 67 63 Pulse Rate [Apical] Pulse Rate from SpO2 Sensor 66 68 64 Pulse Rhythm Pulse Strength Respiratory Rate 17 15 14 Respiratory Effort / Characteristics Respiratory Depth Respiratory Pattern Blood Pressure 132/65 104/61 Blood Pressure [Left Arm] Blood Pressure Mean 87 75 Blood Pressure Mean [Left Arm] Blood Pressure Position Pulse Oximetry 95 94 96 Oxygen Delivery Method Sepsis Recent Fever Within 48 Hours Sepsis New/Unexplained Change in Mental Status Sepsis Action Taken by Detention Medications Current Medication List: was personally reviewed by me Laboratory Data Attestation: I reviewed the patient's lab results. Result diagrams: 06/02/20 03:26 06/02/20 03:26 Lab Results 06/01/20 06/01/20 06/01/20 Range/Units 12:44 12:44 14:15 WBC 9.33 (4.8-10.8) K/uL RBC 4.79 (4.7-6.1) M/uL Hgb 13.9 L (14.0-18.0) g/dL Hct 42.2 (42-52) % MCV 88.1 (80-100) fL MCH 29.0 (25-34) pg MCHC 32.9 (32-36) g/dL RDW Std Deviation 44.9 (36.4-46.3) fL RDW Coeff of [place] 13.8 (11.5-14.5) % Plt Count 260 (130-400) K/uL MPV 9.4 (7.4-10.4) fL Immature Gran % (Auto) 0.2 % Neut % (Auto) 67.4 % Lymph % (Auto) 19.8 % [place] % (Auto) 9.1 % Eos % (Auto) 3.4 % Baso % (Auto) 0.1 % Neut # (Auto) 6.28 (1.4-6.5) K/uL Lymph # (Auto) 1.85 (1.2-3.4) K/uL [place] # (Auto) 0.85 H (0.11-0.59) K/uL Eos # (Auto) 0.32 (0-0.5) K/uL Baso # (Auto) 0.01 (0-0.2) K/uL Immature Gran # (Auto) 0.02 (0.00-0.02) K/uL Sodium 140 (136-145) mmol/L Potassium 4.1 (3.5-5.1) mmol/L Chloride 107 (98-107) mmol/L Carbon Dioxide 29 (21-32) mmol/L Anion Gap 4.0 (3-11) BUN 11 (7-18) mg/dl Creatinine 0.88 (0.6-1.4) mg/dl Est Cr Clr Drug Dosing 90.5 ml/min Est GFR ( Amer) 100.9 Est GFR (Non-Af Amer) 87.0 BUN/Creatinine Ratio 12.2 (10-20) Glucose 96 (70-99) mg/dl Calcium 9.3 (8.5-10.1) mg/dl Total Bilirubin 0.7 (0.2-1) mg/dl AST 13 L (15-37) U/L ALT 20 (12-78) U/L Alkaline Phosphatase 76 (45-117) U/L Troponin I < 0.015 (0-0.045) ng/ml Total Protein 8.1 (6.4-8.2) gm/dl Albumin 3.7 (3.4-5.0) gm/dl Globulin 4.4 H (2.5-4.0) gm/dl Albumin/Globulin Ratio 0.8 L (0.9-2) Lipase 110 (73-393) U/L Urine Color Yellow Urine Appearance Clear (Clear) Urine pH 7.0 (4.5-7.5) Ur Specific [place] 1.015 (1.000-1.030) Urine Protein Negative (Negative) Urine Glucose (UA) Negative (Negative) Urine Ketones Trace H (Negative) Urine Blood Negative (Negative) Urine Nitrite Negative (Negative) Urine Bilirubin Negative (Negative) Urine Urobilinogen Negative (Negative) Ur Leukocyte Esterase Negative (Negative) Urine Opiates Screen (Neg) Ur Methadone, Qual (Neg) Urine Barbiturates (Neg) Ur Phencyclidine (PCP) (Neg) U Amphetamin/Meth Scrn (Neg) MDMA (Ecstasy) Screen (Neg) U Benzodiazepines Scrn (Neg) Ur Cocaine Metabolite (Neg) U Marijuana (THC) Screen (Neg) COVID-19 Eval Order SARS-CoV-2 (PCR) (Negative) Influenza Type A (PCR) (Neg) Influenza Type B (PCR) (Neg) RSV (RT-PCR) (Neg) 06/01/20 06/01/20 06/01/20 Range/Units 14:15 15:27 17:22 WBC (4.8-10.8) K/uL RBC (4.7-6.1) M/uL Hgb (14.0-18.0) g/dL Hct (42-52) % MCV (80-100) fL MCH (25-34) pg MCHC (32-36) g/dL RDW Std Deviation (36.4-46.3) fL RDW Coeff of [place] (11.5-14.5) % Plt Count (130-400) K/uL MPV (7.4-10.4) fL Immature Gran % (Auto) % Neut % (Auto) % Lymph % (Auto) % [place] % (Auto) % Eos % (Auto) % Baso % (Auto) % Neut # (Auto) (1.4-6.5) K/uL Lymph # (Auto) (1.2-3.4) K/uL [place] # (Auto) (0.11-0.59) K/uL Eos # (Auto) (0-0.5) K/uL Baso # (Auto) (0-0.2) K/uL Immature Gran # (Auto) (0.00-0.02) K/uL Sodium (136-145) mmol/L Potassium (3.5-5.1) mmol/L Chloride (98-107) mmol/L Carbon Dioxide (21-32) mmol/L Anion Gap (3-11) BUN (7-18) mg/dl Creatinine (0.6-1.4) mg/dl Est Cr Clr Drug Dosing ml/min Est GFR ( Amer) Est GFR (Non-Af Amer) BUN/Creatinine Ratio (10-20) Glucose (70-99) mg/dl Calcium (8.5-10.1) mg/dl Total Bilirubin (0.2-1) mg/dl AST (15-37) U/L ALT (12-78) U/L Alkaline Phosphatase (45-117) U/L Troponin I < 0.015 (0-0.045) ng/ml Total Protein (6.4-8.2) gm/dl Albumin (3.4-5.0) gm/dl Globulin (2.5-4.0) gm/dl Albumin/Globulin Ratio (0.9-2) Lipase (73-393) U/L Urine Color Urine Appearance (Clear) Urine pH (4.5-7.5) Ur Specific [place] (1.000-1.030) Urine Protein (Negative) Urine Glucose (UA) (Negative) Urine Ketones (Negative) Urine Blood (Negative) Urine Nitrite (Negative) Urine Bilirubin (Negative) Urine Urobilinogen (Negative) Ur Leukocyte Esterase (Negative) Urine Opiates Screen Neg (Neg) Ur Methadone, Qual Neg (Neg) Urine Barbiturates Neg (Neg) Ur Phencyclidine (PCP) Neg (Neg) U Amphetamin/Meth Scrn Neg (Neg) MDMA (Ecstasy) Screen Neg (Neg) U Benzodiazepines Scrn Neg (Neg) Ur Cocaine Metabolite Neg (Neg) U Marijuana (THC) Screen Neg (Neg) COVID-19 Eval Order CovFluRsv at [facility] SARS-CoV-2 (PCR) (Negative) Influenza Type A (PCR) (Neg) Influenza Type B (PCR) (Neg) RSV (RT-PCR) (Neg) 06/01/20 Range/Units 17:22 WBC (4.8-10.8) K/uL RBC (4.7-6.1) M/uL Hgb (14.0-18.0) g/dL Hct (42-52) % MCV (80-100) fL MCH (25-34) pg MCHC (32-36) g/dL RDW Std Deviation (36.4-46.3) fL RDW Coeff of [place] (11.5-14.5) % Plt Count (130-400) K/uL MPV (7.4-10.4) fL Immature Gran % (Auto) % Neut % (Auto) % Lymph % (Auto) % [place] % (Auto) % Eos % (Auto) % Baso % (Auto) % Neut # (Auto) (1.4-6.5) K/uL Lymph # (Auto) (1.2-3.4) K/uL [place] # (Auto) (0.11-0.59) K/uL Eos # (Auto) (0-0.5) K/uL Baso # (Auto) (0-0.2) K/uL Immature Gran # (Auto) (0.00-0.02) K/uL Sodium (136-145) mmol/L Potassium (3.5-5.1) mmol/L Chloride (98-107) mmol/L Carbon Dioxide (21-32) mmol/L Anion Gap (3-11) BUN (7-18) mg/dl Creatinine (0.6-1.4) mg/dl Est Cr Clr Drug Dosing ml/min Est GFR ( Amer) Est GFR (Non-Af Amer) BUN/Creatinine Ratio (10-20) Glucose (70-99) mg/dl Calcium (8.5-10.1) mg/dl Total Bilirubin (0.2-1) mg/dl AST (15-37) U/L ALT (12-78) U/L Alkaline Phosphatase (45-117) U/L Troponin I (0-0.045) ng/ml Total Protein (6.4-8.2) gm/dl Albumin (3.4-5.0) gm/dl Globulin (2.5-4.0) gm/dl Albumin/Globulin Ratio (0.9-2) Lipase (73-393) U/L Urine Color Urine Appearance (Clear) Urine pH (4.5-7.5) Ur Specific [place] (1.000-1.030) Urine Protein (Negative) Urine Glucose (UA) (Negative) Urine Ketones (Negative) Urine Blood (Negative) Urine Nitrite (Negative) Urine Bilirubin (Negative) Urine Urobilinogen (Negative) Ur Leukocyte Esterase (Negative) Urine Opiates Screen (Neg) Ur Methadone, Qual (Neg) Urine Barbiturates (Neg) Ur Phencyclidine (PCP) (Neg) U Amphetamin/Meth Scrn (Neg) MDMA (Ecstasy) Screen (Neg) U Benzodiazepines Scrn (Neg) Ur Cocaine Metabolite (Neg) U Marijuana (THC) Screen (Neg) COVID-19 Eval Order SARS-CoV-2 (PCR) NEGATIVE (Negative) Influenza Type A (PCR) Negative (Neg) Influenza Type B (PCR) Negative (Neg) RSV (RT-PCR) Negative (Neg) Administered Medications Discontinued Medications Aspirin (Aspirin Chew 324 Mg) 243 mg PO NOW STA Stop: 06/01/20 13:45 Last Admin: 06/01/20 13:53 Dose: 243 mg Documented by: [id number] Aspirin (Aspirin 81 Mg Ectab) 81 mg PO DAILY MANUELITO Stop: 07/02/20 08:59 Last Admin: 06/02/20 09:02 Dose: 81 mg Documented by: [id number] Atorvastatin Calcium (Atorvastatin 40 Mg Tab) 80 mg PO DAILY MANUELITO Stop: 07/02/20 08:59 Last Admin: 06/02/20 09:02 Dose: 80 mg Documented by: [id number] Carvedilol (Carvedilol 25 Mg Tab) 25 mg PO BID MANUELITO Stop: 07/01/20 20:59 Last Admin: 06/02/20 10:39 Dose: 25 mg Documented by: [id number] Admin: 06/01/20 21:46 Dose: 25 mg Documented by: [id number] Colchicine (Colchicine 0.6 Mg Tab) 0.6 mg PO BID MANUEL[place]O Stop: 07/02/20 11:29 Last Admin: 06/02/20 14:01 Dose: 0.6 mg Documented by: [id number] Famotidine (Famotidine 20mg/5ml Iv Push) 20 mg IV ONE STA Stop: 06/01/20 17:02 Last Admin: 06/01/20 17:09 Dose: 20 mg Documented by: [id number] Fentanyl Citrate (Fentanyl Citrate 100 Mcg/2 Ml Vial) 50 mcg IV NOW STA Stop: 06/01/20 14:14 Last Admin: 06/01/20 17:09 Dose: Not Given Documented by: [id number] Fluticasone/Vilanterol (Fluticasone/Vilanterol 100/25mcg 14 Puffs/Inhaler) 1 puffs INH DAILY [facility]; Protocol Stop: 07/02/20 08:59 Last Admin: 06/02/20 09:03 Dose: 1 puffs Documented by: [id number] Heparin Sodium (Porcine) (Heparin Sod 5,000 Unit/0.5 Ml Vial) 5,000 units SQ Q8 [place] Stop: 07/01/20 21:59 Last Admin: 06/02/20 14:02 Dose: 5,000 units Documented by: [id number] Admin: 06/02/20 06:09 Dose: 5,000 units Documented by: [id number] Admin: 06/01/20 21:46 Dose: 5,000 units Documented by: [id number] Ibuprofen (Ibuprofen 600 Mg Tab) 600 mg PO Q8 [place] Stop: 07/02/20 11:59 Last Admin: 06/02/20 14:04 Dose: 600 mg Documented by: [id number] Ioversol (Optiray 320 125ml) 119 ml IV ONCE ONE Stop: 06/01/20 17:43 Last Admin: 06/01/20 17:42 Dose: 119 ml Documented by: [id number] Montelukast Sodium (Montelukast Sodium 10 Mg Tablet) 10 mg PO HS [place]EL[place]O Stop: 07/01/20 20:59 Last Admin: 06/01/20 21:46 Dose: 10 mg Documented by: [id number] Morphine Sulfate (Morphine Sulfate 4 Mg/Ml 1 Ml Carp\Vial) 4 mg IV NOW STA Stop: 06/01/20 17:00 Last Admin: 06/01/20 17:09 Dose: 4 mg Documented by: [id number] Morphine Sulfate (Morphine Sulfate 2 Mg/Ml Carp) 2 mg IV Q6H PRN PRN Reason: Severe Pain Stop: 06/15/20 20:20 Last Admin: 06/02/20 06:09 Dose: 2 mg Documented by: [id number] Admin: 06/01/20 21:21 Dose: 2 mg Documented by: [id number] Nitroglycerin (Nitroglycerin Sl 0.4 Mg/Tab Tab) 0.4 mg SL UD PRN PRN Reason: Chest Pain Stop: 07/01/20 13:43 Last Admin: 06/01/20 14:02 Dose: 0.4 mg Documented by: [id number] Admin: 06/01/20 13:53 Dose: 0.4 mg Documented by: [id number] Ondansetron HCl (Ondansetron Inj 2 Mg/Ml 2 Ml Vial) 4 mg IV NOW STA Stop: 06/01/20 17:00 Last Admin: 06/01/20 17:09 Dose: 4 mg Documented by: [id number] Oxycodone HCl (Oxycodone Hcl Ir 5 Mg Tab (Immediate Release)) 10 mg PO TID PRN PRN Reason: Pain Stop: 06/15/20 20:20 Last Admin: 06/02/20 14:04 Dose: 10 mg Documented by: [id number] Pantoprazole Sodium (Pantoprazole 40 Mg Tab) 40 mg PO QAM [facility] Stop: 07/02/20 11:29 Last Admin: 06/02/20 14:02 Dose: 40 mg Documented by: [id number] Regadenoson (Regadenoson 0.4 Mg/5 Ml Syr) Confirm Administered Dose 0.4 mg IV .STK-MED ONE Stop: 06/02/20 12:25 Last Admin: 06/02/20 14:08 Dose: Not Given Documented by: [id number] Sacubitril/Valsartan (Sacubitril-Valsartan 24-26 Mg Tab) 1 tab PO BID [facility] Stop: 07/01/20 20:59 Last Admin: 06/02/20 10:39 Dose: 1 tab Documented by: [id number] Admin: 06/01/20 21:46 Dose: 1 tab Documented by: [id number] Spironolactone (Spironolactone 12.5 Mg Tab) 12.5 mg PO DAILY [facility] Stop: 07/02/20 08:59 Last Admin: 06/02/20 09:02 Dose: 12.5 mg Documented by: [id number] Discharge Plan Visit Data Chief Complaint: Chest Pain Stated Complaint: PAIN IN CHEST - SOB SINCE 6AM ED Provider: Tara Renee Discharge Problem: SOB (shortness of breath), Substernal chest pain Patient Disposition: Admitted As Inpatient Discharge Instructions Interventions: ED Discharge Assessment Last Done: 06/01/20 19:59
--- NOTE | 2020-06-01 18:09 | CT Scan Report ---
CT ANGIOGRAPHY OF THE CHEST WITHOUT AND WITH IV CONTRAST CLINICAL HISTORY: Chest pain radiating to the back. Possible acute aortic dissection. COMPARISON STUDY: Chest x-ray dated 06/01/2020 TECHNIQUE: Unenhanced images were obtained through the thorax. Following the IV administration of 119 mL of Optiray-320, CT angiography of the thorax was performed from the thoracic inlet to the lung ba ses. Images were acquired Images are reviewed in the axial, sagittal, and coronal planes. IV contrast was administered without complication. A dose lowering technique was utilized adhering to the princ iples of ALEXIS. CT DOSE: 609.84 mGy.cm FINDINGS: Thyroid: There is a multinodular thyroid gland with nodules measuring up to 11 mm in diameter Thoracic aorta: Noncontrast images reveal no evidence of acute thoracic aortic hematoma. There is no evidence of thoracic aortic aneurysm. There is no evidence of thoracic aortic dissection. There are m oderately advanced atheromatous changes within the descending thoracic aorta with scattered ulcerated plaques. Pulmonary vasculature: The pulmonary trunk is normal in caliber. There are no central filling defects identified to suggest pulmonary embolus. Note that this examination was not protocoled for the evalu ation of pulmonary emboli. HEART: There is a small pericardial effusion. A pacer/defibrillator is present. Lungs and pleural spaces: There is no pneumothorax. There is biapical scarring. There is pulmonary em physema. There is no lobar consolidation. There are nonspecific scattered pulmonary micronodules, sta tistically postinflammatory. There is a 4 mm left lower lobe perifissural nodule, and 3 mm subpleural left lower lobe pulmonary nodule. Mediastinum: There is no evidence of pathologic mediastinal lymphadenopathy. Irish: Hilar lymph nodes are the upper limits of normal in size. Axilla: There is no evidence of pathologic axillary lymphadenopathy. Upper abdomen: Partially visualized upper abdominal viscera is within normal limits. Skeletal structures: There are no lytic or blastic osseous lesions. IMPRESSION: 1. No evidence of thoracic aortic aneurysm or dissection 2. Moderately extensive atheromatous changes within the descending thoracic aorta with multiple ulcer ated plaques 3. No evidence of acute pulmonary embolism 4. Small pericardial effusion 5. Scattered pulmonary micronodules, statistically postinflammatory 6. 4 mm left lower lobe perifissural nodule and 3 mm subpleural left lower lobe pulmonary nodule. No follow-up is recommended in an average risk patient ACT 112: Negative or not required by law. Electronically signed by: Ambrose Sam M.D. 06/01/2020 6:08 PM
[2020-06-01 18:15] LABS: Influenza A virus by PCR Negative (Neg); Influenza B virus by PCR Negative (Neg); RSV by PCR Negative (Neg); SARS CoV2 RNA(COVID-19) InHosp NEGATIVE (Negative)
[2020-06-01] MEDS ORDERED: ALBUTEROL 0.083% NEBU SOLN 3 ML VIAL NEB PRN (20:21)
[2020-06-01] MEDS ORDERED: ACETAMINOPHEN 325 MG TAB PO PRN (20:21)
[2020-06-01] MEDS ORDERED: oxyCODONE HCL IR 5 MG TAB (IMMEDIATE RELEASE) PO PRN (20:21)
[2020-06-01] MEDS ORDERED: MONTELUKAST SODIUM 10 MG TABLET PO SCH (21:00)
[2020-06-01] MEDS: MoRPHine SULFATE 2 MG/ML CARP IV PRN (21:21)
[2020-06-01] MEDS: SACUBITRIL-VALSARTAN 24-26 MG TAB PO SCH (21:46)
[2020-06-01] MEDS: carvediloL 25 MG TAB PO SCH (21:46)
[2020-06-01] MEDS: HEPARIN SOD 5,000 UNIT/0.5 ML VIAL SQ SCH (21:46)
[2020-06-02 03:35] LABS: Hematocrit (blood only) 37.4 % (42-52); Hemoglobin 12.5 g/dL (14.0-18.0); Mean Corpuscular Hemoglobin 29.3 pg (25-34); Mean Corpuscular Hgb Conc 33.4 g/dL (32-36); Mean Corpuscular Volume 87.6 fL (80-100); Mean Platelet Volume 8.5 fL (7.4-10.4); Platelet Count 207 K/uL (130-400); RDW Coefficient of Variation 13.8 % (11.5-14.5); RDW Standard Deviation 44.7 fL (36.4-46.3); Red Blood Count 4.27 M/uL (4.7-6.1); White Blood Count 7.31 K/uL (4.8-10.8)
[2020-06-02 03:54] LABS: BUN Creatinine Ratio 15.4 (10-20); Blood Urea Nitrogen 13 mg/dl (7-18); Calcium 8.9 mg/dl (8.5-10.1); Carbon Dioxide 32 mmol/L (21-32); Chloride 108 mmol/L (98-107); Creatinine Clr Calc Pharmacy 92.9 ml/min; Est GFR (African American) 102.3; Est GFR (Non-African American) 88.3; Glucose 76 mg/dl (70-99); Potassium 3.8 mmol/L (3.5-5.1); Sodium 142 mmol/L (136-145)
[2020-06-02 03:58] LABS: Chol HDL Ratio 3; Cholesterol 85 mg/dl (0-200); HDL Cholesterol 31 mg/dl; LDL Cholesterol Calculated 36 mg/dl; Triglycerides 92 mg/dl (0-150); Troponin I < 0.015 ng/ml (0-0.045); VLDL Cholesterol 18 mg/dl
[2020-06-02] MEDS: HEPARIN SOD 5,000 UNIT/0.5 ML VIAL SQ SCH ×2 (06:09→14:02)
[2020-06-02] MEDS: MoRPHine SULFATE 2 MG/ML CARP IV PRN (06:09)
[2020-06-02] MEDS ORDERED: ATORVASTATIN 40 MG TAB PO SCH (09:00)
[2020-06-02] MEDS ORDERED: ASPIRIN 81 MG ECTAB PO SCH (09:00)
[2020-06-02] MEDS ORDERED: FLUTICASONE/VILANTEROL 100/25MCG 14 PUFFS/INHALER INH SCH (09:00)
[2020-06-02] MEDS ORDERED: SPIRONOLACTONE 12.5 MG TAB PO SCH (09:00)
[2020-06-02] MEDS: SACUBITRIL-VALSARTAN 24-26 MG TAB PO SCH (10:39)
[2020-06-02] MEDS: carvediloL 25 MG TAB PO SCH (10:39)
[2020-06-02] MEDS ORDERED: COLCHICINE 0.6 MG TAB PO SCH (11:30)
[2020-06-02] MEDS ORDERED: PANTOprazole 40 MG TAB PO SCH (11:30)
--- NOTE | 2020-06-02 11:34 | Cardiology Progress Note ---
Date of Service June 02, 2020 Assessment & Plan (1) Chest pain: (2) SOB (shortness of breath): (3) Chronic pain: (4) Chronic systolic congestive heart failure, NYHA class 3: (5) LBBB (left bundle branch block): (6) NICM (nonischemic cardiomyopathy): So far, work-up for chest discomfort has been unremarkable. 2D echocardiogram did show a small anterior pericardial effusion which could explain the patient's discomfort. We will proceed with Lexiscan nuclear stress test today to rule out ischemia and should that come back unremarkable will treat for possible pericarditis with ibuprofen 600 mg p.o. every 8 hours for 1 month and colchicine 0.6 mg twice daily x3 months. I will also start him on PPI for GI prophylaxis. Continue outpatient medical regimen. Echocardiogram has shown significant improvement of his overall LV systolic function which is likely due to his guideline directed medical therapy and biventricular pacing. Admission and Anticipated Discharge Date Admission Date: June 01, 2020 Subjective Patient seen and examined, chart reviewed. States that he has had occasional chest discomfort overnight but not as severe as presentation. Continues to describe it as a substernal sharp stabbing/burning sensation. Denies shortness of breath, palpitations, lightheadedness, dizziness or syncope. Telemetry reviewed: AV sequentially paced rhythm without arrhythmias. Review of Systems Review of Systems: All systems reviewed & are unremarkable except as noted in HPI & below Physical Exam Physical Exam: General: Awake, alert and oriented x 3. No acute distress. HEENT: Normocephalic, atraumatic. Pupils equal, round and reactive to light and accommodation. Extraocular muscles are intact. Anicteric sclera. Moist mucous membranes. Neck: No JVD. No bruit. Cardiovascular: Regular. Positive S-4. Normal S-1 and S-2. No S-3. No murmurs or rubs. Pulmonary: Clear to auscultation B/L. No rales, rhonchi or wheezing Abdomen: Bowel sounds x 4, soft. No rebound, guarding or tenderness. No organomegaly. Extremities: No clubbing, cyanosis or edema. +2 pedal pulses bilaterally. Skin: Warm and dry. Results & Data ([facility]) Vital Signs (Past 12 Hours) Vital Signs Temp Pulse Pulse Resp BP Pulse Ox 06/02/20 11:15 36.8 C 76 18 122/71 92 06/02/20 07:06 37.0 C 69 17 132/64 90 06/02/20 07:00 64 06/02/20 03:19 37.0 C 64 18 95/50 L 93 06/01/20 23:35 37.0 C 62 18 101/44 L 92
[2020-06-02] MEDS ORDERED: IBUPROFEN 600 MG TAB PO SCH ×2 (12:00)
[2020-06-02] MEDS ORDERED: REGADENOSON 0.4 MG/5 ML SYR IV ONE (12:24)
--- NOTE | 2020-06-02 16:39 | Electrocardiogram Report ---
Test Reason : Blood Pressure : / mmHG Vent. Rate : 069 BPM Atrial Rate : 069 BPM P-R Int : 174 ms QRS Dur : 154 ms QT Int : 442 ms P-R-T Axes : 080 -69 095 degrees QTc Int : 473 ms Atrial-sensed ventricular-paced rhythm with frequent AV dual-paced complexes Abnormal ECG When compared with ECG of 01-JUN-2020 12:20, Vent. rate has decreased BY 10 BPM Confirmed by Galdino Romero ([id number]) on 06/02/2020 4:38:46 PM Referred By: Roel Law Confirmed By:Erich Romero
--- NOTE | 2020-06-02 17:01 | Myocardial Perfusion Study ---
Date of Service June 02, 2020 Myocardial Perfusion Study [facility] Myocardial Perfusion Study Report Procedure: 1. Myocardial perfusion study performed in multiple views/images 2. Lexiscan pharmacologic stress ECG Indications: 1. Chest pain Ordering physician: Dr. Law Procedural details: For the stress portion of the study, Lexiscan 0.4 mg was intravenously administered followed by a saline flush. This was followed by 33.1 mCi of technetium 99m Cardiolite, injected at 1300 on 06/02/2020. 30 minutes following the injection, imaging of the heart was performed in multiple projections. For the rest portion of the study, 11 mCi technetium 99m Cardiolite was injected intravenously at 1125 on 06/02/2020. 1 hour following the injection, imaging of the heart was performed in the same projections. Lexiscan stress ECG: Resting ECG demonstrated: No ischemic changes Maximum heart rate: 86 bpm Maximal, age-predicted heart rate: 57% Resting blood pressure: 107/57 mmHg Maximum blood pressure: 107/[address] changes: None Arrhythmia: None Symptoms: None Findings: Rotating raw imaging demonstrated no significant lung uptake. There is no significant motion artifact. Heart size appeared normal. Myocardial perfusion demonstrated normal myocardial perfusion.. Ejection fraction: 66% Wall motion: Normal No significant transient ischemic dilation. Impression: 1. Nonischemic Lexiscan nuclear stress test. Normal LV systolic function without regional wall motion abnormality, EF calculated to be 66%.
--- NOTE | 2020-06-13 10:53 | Discharge Summary ---
Date of Service June 13, 2020 Admission HPI Per Admitting Provider Pt is 69 y/o M with PMH non-ischemic cardiomyopathy with EF 30% s/p ICD thought secondary to agent orange exposure, chronic LBBB, HTN, COPD, chronic hypoxic respiratory failure on 2L oxygen HS, seizure thought secondary to brain tumor s/p surgery, chronic pain presented to ER with c/o CP x 1 day. Reports yesterday afternoon started with SOB, anterior chest pain. Reports worsening CP during the night rated 8/10 on pain scale and reports radiation to neck and right shoulder. Pt states had to sit upright last night which seemed to make CP and SOB better. In ER notices lying on left side makes him feel better. He states past several days lying on right side caused some right shoulder and neck pain. Denies injury/trauma. Denies any activity or exertion. States has been sitting at home. Has chronic mild intermittent cough productive of clear sputum. Denies any increased cough or increased sputum production. Denies wheezing. Reports in 03/2020 had CP and was seen at [facility] and had acute RI ruled out. Denies fever/ch ills, diaphoresis, N/V/D/C, SIMON, syncope, vision changes, neck pain, palpitations, hemoptysis, sore throat, choking, otalgia, rhinorrhea, abdominal pain, paresthesias, weakness, extremity weakness, extremity edema, rashes, urinary symptoms. Admission Exam Per Admitting Provider General: no distress, WDWN Head: normocephalic, atraumatic Eyes: PERRL, EOM's intact, conjunctiva non-injected, anicteric ENT: normal inspection external ears, nose, mucous membranes moist Neck: supple, trachea midline Lungs: clear, no respiratory distress, no wheezing/rhonchi/rales CV: RRR, no murmur, no pretibial edema, currently chest wall non-tender to palpation (pt medicated prior to my eval) Abd: normal BS, soft, non-tender Ext: no cyanosis, no calf tenderness; right shoulder non-tender to palpation and with ROM Neuro: A&O x 3, no focal deficits noted, normal affect Skin: warm, dry Principal Diagnosis Chest pain possibly from pericarditis Discharge Data Allergies Allergy/AdvReac Type Severity Reaction Status Date / Time Penicillins Allergy Mild SWEATING Verified 06/01/20 20:37 tramadol Allergy Unknown UNKNOWN Verified 06/01/20 12:53 losartan AdvReac Mild DIZZINESS Verified 06/01/20 20:37 Consultations 06/01/20 17:18 ED Decision to Admit Stat 06/01/20 20:21 Consult Cardiology Routine Ordered Studies 06/01/20 17:01 CT angio chest dissec wo/w con Stat Hospital Course (1) Chest pain: (2) NICM (nonischemic cardiomyopathy): Pt is 69 y/o M with PMH non-ischemic cardiomyopathy with EF 30% s/p ICD thought secondary to agent orange exposure, chronic LBBB, HTN, COPD, chronic hypoxic respiratory failure on 2L oxygen HS, seizure thought secondary to brain tumor s/p surgery, chronic pain presented to ER with c/o CP x 1 day. Had CHRONIC LBBB. patient had negative troponins. EKG was nonischemic. Cardiology was consulted. CTA chest was obtained and it revealed No evidence of thoracic aortic aneurysm or dissection. No evidence of acute pulmonary embolism. Small pericardial ef fusion. Patient had lexiscan nuclear cardiac stress test which was nonischemic. Cardiology believed patient had pericarditis. He was discharged on ibuprofen every 8 hours for 1 monthand colchicine 0.6 mg twice daily for 3 months along with PPI. On the day of discharge patient was stable. Did not have any further episodes of chest pain. Patient was discharged in stable condition. COPD CHRONIC HYPOXIC RESPIRATORY FAILURE On oxygen 2L NC HS No signs of acute exacerbation Continue home inhalers HTN BP stable Continue carvedilol, Entresto CHRONIC BACK PAIN Continue home oxycodone Total Time Total Time Spent Total Time Spent (In Minutes): 35 Discharge Plan Discharge Items Patient Disposition: Home - Self-Care Reason For Visit: CP Discharge Diagnosis: pericarditis Activity: Resume your previous activity Non-emergency contact: Primary Care Provider Call non-emergency contact if: your symptoms worsen Follow-up/Referrals: Anam Mirza DO [Outside Practitioners] - 06/09/20 10:20 am ([employer]) Diet: Heart Healthy Addtl Attending Provider Instructions: Take ibuprofen 600 mg every 8 hours for 1 month. Take pantoprazole 40 mg daily. Take colchicine 0.6 mg twice daily for 3 months. Pending Studies at Discharge: No Stand-Alone Forms: Narvar, Smoking Cessation Medications and DC Order Prescriptions: New pantoprazole 40 mg Tablet,Delayed Release (Dr/Ec) 40 mg PO QAM Qty: 30 RF: 2 ibuprofen 600 mg Tablet 600 mg PO Q8 30 Days Qty: 90 RF: 0 colchicine [Colcrys] 0.6 mg Tablet 0.6 mg PO BID Qty: 60 RF: 2 Continued budesonide-formoterol 160-4.5 mcg/actuation Hfa Aerosol Inhaler 2 puff INHALATION BID RF: 0 oxycodone 10 mg Tablet 10 mg PO TID PRN (Reason: Pain) RF: 0 albuterol sulfate [ProAir HFA] 90 mcg/actuation Hfa Aerosol Inhaler 2 puff INHALATION Q4H PRN (Reason: Wheezing) RF: 0 acetaminophen [Tylenol] 325 mg Capsule 650 mg PO Q6H PRN (Reason: Pain) RF: 0 spironolactone 25 mg Tablet 12.5 mg PO DAILY RF: 0 aspirin 81 mg Tablet,Delayed Release (Dr/Ec) 81 mg PO DAILY RF: 0 Entresto 24-26 mg tablet 1 tab PO BID RF: 0 atorvastatin 80 mg tablet 80 mg PO DAILY RF: 0 carvedilol 25 mg tablet 25 mg PO BID RF: 0 montelukast 10 mg tablet 10 mg PO HS RF: 0 Discharge Orders: Discharge Order (Routine); Ordered 06/02/20 Ordered By: Mohsen Waterman/Other Patient Handouts: Pericarditis, Colchicine tablets or capsules Admission Data Admit Date/Time: 06/01/20 17:50 Attending Provider: Mohsen Herring Admit Provider: Mohsen Herring Primary Care Provider: Andry Medeiros Other Providers: Mohsen Herring ; Roel Law Other Interventions: Discharge Summary Assessment (RN) Last Done: 06/02/20 16:00
== END 2020-06-02 16:57 | disposition home or self-care (01) ==
LOC: 2S 12:12 → ED 12:12 → 2S 19:59